=== PATIENT | male | born 1960 | race Caucasian/White ===

== ENCOUNTER 2016-06-22 10:19 | Emergency (ER) | payer OTHER ==
[2016-06-22 10:30] VITALS: BP 106/74
--- NOTE | 2016-06-22 11:55 | UC ---
Head Injury HPI - HPI Summary HPI Summary: woke up at 0430 having to have diarrhea. Son ill with GI bug recently. Went to bathroom, had diarrhea, and soon after he felt sweaty and light-headed, vision blurred, and he woke up on the floor with blood coming out of his head. heard the fall, ran in bathroom, and he was already able to converse with her. No vomiting. NO other injury. Able to get up and walk back to bed. Called MD at 8am, and then they came here. - History Of Current Complaint Chief Complaint: UCHeadInjury Stated Complaint: HEAD INJURY FAINTED Time Seen by Provider: 06/22/16 11:17 Hx Obtained From: Patient Onset/Duration: Sudden Onset, Lasting Hours - 7 Severity Currently: Mild Severity Initially: Mild Character: Dull Aggravating Factor(s): Nothing Alleviating Factor(s): Nothing Associated Signs And Symptoms: Positive: Negative. Negative: Confusion, Memory Loss, Seizure, Epistaxis, Dental Malocclusion, Neck Pain, Nausea, Vomiting - Risk Factors SDH Risk Factor: Negative - Allergies/Home Medications Allergies/Adverse Reactions: Allergies Allergy/AdvReac Type Severity Reaction Status Date / Time Acetaminophen [From Vicodin] Allergy Vomiting Verified 06/22/16 10:30 Hydrocodone [From Vicodin] Allergy Vomiting Verified 06/22/16 10:30 Home Medications: Home Medications Cholecalciferol [Vitamin D] 1,000 unit PO 06/22/16 [History] Ibuprofen [Advil] 400 mg PO 06/22/16 [History] PMH/Surg Hx/FS Hx/Imm Hx Previously Healthy: Yes Endocrine History Of: Denies: Diabetes, Thyroid Disease Cardiovascular History Of: Denies: Cardiac Disorders, Hypertension Respiratory History Of: Denies: COPD, Asthma GI/ History Of: Denies: Ulcer - Surgical History Surgical History: Yes Surgery Procedure, Year, and Place: back 1992, hernia as an infant - Social History Occupation: Employed Full-time Lives: With Family Alcohol Use: Weekly Substance Use Type: None Smoking Status (MU): Never Smoked Tobacco Review of Systems Constitutional: Negative Skin: Other - scalp laceration Eyes: Negative ENT: Negative Respiratory: Negative Cardiovascular: Negative Gastrointestinal: Negative Genitourinary: Negative Motor: Negative Neurovascular: Negative Musculoskeletal: Negative Neurological: Negative Psychological: Negative All Other Systems Reviewed And Are Negative: Yes Physical Exam Triage Information Reviewed: Yes Appearance: Well-Appearing, No Pain Distress, Well-Nourished, Thin Vital Signs: Initial Vital Signs Temp 98.0 F 06/22/16 10:23 Pulse 88 06/22/16 10:23 Resp 18 06/22/16 10:23 BP 106/74 06/22/16 10:23 Pulse Ox 97 06/22/16 10:23 Vital Signs Reviewed: Yes Eye Exam: Normal Eyes: Positive: Conjunctiva Clear ENT Exam: Normal Neck exam: Normal Respiratory Exam: Normal Cardiovascular Exam: Normal Musculoskeletal Exam: Normal Neurological Exam: Normal Psychological Exam: Normal Skin Exam: Normal Head Injury Course/Dx - Course Course Of Treatment: 3cm linear laceration left parietal area on scalp. Wound cleansed with irrigation device. Glued with cyanoacrylate. - Differential Dx/Diagnosis Differential Diagnosis/HQI/PQRI: Laceration Provider Diagnoses: scalp laceration Discharge - Discharge Plan Condition: Stable Disposition: HOME Patient Education Materials: Laceration (ED), Syncope (ED), Skin Adhesive Care (ED) Referrals: Azalea Crowder MD [Primary Care Provider] - Additional Instructions: You will likely have more diarrhea and/or vomiting with this GI virus. Be aware that you may experience a similar phenomenon and pass out when your blood pressure falls low. If you feel the symptoms starting: sweating, nausea, light- headed, darkened or tunnel vision, try to lie down immediately. If you can't, try to squeeze your leg and arm muscles vigorously and sometimes this can rutledge off the fainting spell. The only danger with these spells is injuring yourself when you fall. Try to take in a little extra dietary salt for the next few days to boost your blood pressure and replace the salt you will lose in the diarrhea.
== END 2016-06-22 11:57 | disposition home or self-care (01) ==
LOC: UCEAST 10:19
DX: S01.01XA Laceration without foreign body of scalp, initial encounter (principal); R19.7 Diarrhea, unspecified; W18.30XA Fall on same level, unspecified, initial encounter; Y92.012 Bathroom of single-family (private) house as the place of occurrence of the external cause; Z88.5 Allergy status to narcotic agent; Z88.6 Allergy status to analgesic agent
CPT/HCPCS: 12001; 12002; 99211; G0463